=== PATIENT | female | born 1960 | race Caucasian/White ===

== ENCOUNTER 2019-07-07 04:50 | Emergency (ER) | payer SELFPAY ==
[~2019-07-07] VITALS: Ht 157.5 cm; Wt 105.0 kg
[2019-07-07] MEDS ORDERED: VISCOUS LIDOCAINE 2% 15 ML UDC MM PRN (07:00)
[2019-07-07] MEDS ORDERED: MECLIZINE 25MG TABLET PO ONE (09:30)
[2019-07-07 09:54] VITALS: BP 145/85
== END 2019-07-07 09:54 | disposition home or self-care (01) ==
LOC: ER 04:50
DX: T16.1XXA Foreign body in right ear, initial encounter (principal); X58.XXXA Exposure to other specified factors, initial encounter; Y93.89 Activity, other specified; Y92.018 Other place in single-family (private) house as the place of occurrence of the external cause
CPT/HCPCS: 99283; J8597